=== PATIENT | male | born 1950 | race Two or more races ===

== ENCOUNTER 2016-07-21 11:42 | Emergency (ER) | payer SELFPAY ==
[~2016-07-21] VITALS: Ht 172.7 cm; Wt 86.2 kg
--- NOTE | 2016-07-21 11:54 | NUR ---
PT AMBULATORY TO ER BED 09. CAME IN FROM [facility] FOR WOUND CHECK. AREA SURROUNDING LT ANKLE APPEARS SWOLLEN. PT DENIES PAIN. HX OF DIABETES. VSS AWAITING MD MANNING.
--- NOTE | 2016-07-21 12:27 | NUR ---
RADIOLOGY AT BEDSIDE FOR L ANKLE XRAY.
--- NOTE | 2016-07-21 12:40 | NUR ---
EXIT BOOTH AGENT AT BEDSIDE FOR BLOOD DRAW.
--- NOTE | 2016-07-21 12:42 | NUR ---
CALLED DR LINN, ON THE PHONE WITH DR YAÑEZ.
[2016-07-21 12:44] LABS: BASOPHILS # (AUTO) 0.1 /CMM (0.0-0.2); BASOPHILS % (AUTO) 0.7 % (0.0-2.0); EOSINOPHILS # (AUTO) 0.7 /CMM (0.0-0.7); EOSINOPHILS % (AUTO) 7.6 % (0.0-6.0); HEMATOCRIT 39 % (39-51); HEMOGLOBIN 12.9 g/dL (13.5-17.5); LYMPHOCYTES # (AUTO) 2.2 /CMM (0.8-4.8); LYMPHOCYTES % (AUTO) 22.9 % (20.0-44.0); MEAN CORPUSCULAR HEMOGLOBIN 29 PG (26.0-33.0); MEAN CORPUSCULAR HGB CONC 34 g/dl (31.0-36.0); MEAN CORPUSCULAR VOLUME 85 fL (80-96); MONOCYTES # (AUTO) 0.7 /CMM (0.1-1.30); MONOCYTES % (AUTO) 6.8 % (2.0-12.0); PLATELET COUNT (AUTO) 270 /CMM (150-450); RDW COEFFICIENT OF VARIATION 12.9 (11.5-15.0); RED BLOOD CELL COUNT(AUTO) 4.52 MIL/uL (4.5-6.0); WHITE BLOOD COUNT (AUTO) 9.7 K/uL (4.3-11.0)
[2016-07-21 13:03] LABS: CALCIUM, SERUM 8.4 mg/dL (8.5-10.1); CREATININE 1.2 mg/dL (0.6-1.3); POTASSIUM 4.3 mmol/L (3.5-5.1)
--- NOTE | 2016-07-21 13:05 | NUR ---
DR ARREDONDO AT BEDSIDE FOR WOUND CHECK
--- NOTE | 2016-07-21 13:37 | NUR ---
Patient discharged to home in stable condition. Written and verbal after care instructions given. Patient verbalizes understanding of instruction.
[2016-07-21 13:42] VITALS: BP 138/84
== END 2016-07-21 13:42 | disposition home or self-care (01) ==
LOC: ER 11:46
DX: L03.116 Cellulitis of left lower limb (principal); I10 Essential (primary) hypertension; E11.9 Type 2 diabetes mellitus without complications
CPT/HCPCS: 36415; 73610; 80048; 85025; 99285; A4606; Z7610